=== PATIENT | female | born 1995 | race Two or more races ===

== ENCOUNTER 2020-03-31 07:18 | Emergency (ER) | payer OTHER ==
[~2020-03-31] VITALS: Ht 152.4 cm; Wt 57.2 kg
[2020-03-31] MEDS ORDERED: KETO10TA2 PO (11:20)
[2020-03-31] MEDS ORDERED: AIRBORNE EFFER1 EACH PO (11:20)
[2020-03-31] MEDS ORDERED: ZITHROMAX500 MG PO (11:20)
== END 2020-03-31 11:39 | disposition home or self-care (01) ==
LOC: ER 07:18
DX: U07.1 COVID-19 (principal); B96.0 Mycoplasma pneumoniae [M. pneumoniae] as the cause of diseases classified elsewhere

== ENCOUNTER 2020-08-25 05:09 | Emergency (ER) | payer OTHER ==
[~2020-08-25] VITALS: Ht 154.9 cm; Wt 55.8 kg
[~2020-08-25 05:09] MED LIST: AIRBORNE EFFER1 EACH PO; KETO10TA2 PO; ZITHROMAX500 MG PO
== END 2020-08-25 11:30 | disposition home or self-care (01) ==
LOC: ER 05:09
DX: O26.892 Other specified pregnancy related conditions, second trimester (principal); R42 Dizziness and giddiness; Z34.02 Encounter for supervision of normal first pregnancy, second trimester

== ENCOUNTER → 2020-09-05 09:48 | Outpatient (CLI) | payer OTHER | END | disposition home or self-care (01) | LOC: LAB 09:48 | PROVIDERS: ATTEND Obstetrics & Gynecology | DX: Z31.430 Encounter of female for testing for genetic disease carrier status for procreative management (principal); Z31.5 Encounter for procreative genetic counseling; O09.892 Supervision of other high risk pregnancies, second trimester ==

== ENCOUNTER → 2020-10-19 | Outpatient (CLI) | payer OTHER | END | disposition home or self-care (01) | LOC: PRENATAL 10:57 | PROVIDERS: ATTEND Obstetrics & Gynecology Maternal & Fetal Medicine | DX: O35.0XX1 Maternal care for (suspected) central nervous system malformation in fetus, fetus 1 (principal); O35.3XX1 Maternal care for (suspected) damage to fetus from viral disease in mother, fetus 1; O98.512 Other viral diseases complicating pregnancy, second trimester; Z36.89 Encounter for other specified antenatal screening; Z3A.23 23 weeks gestation of pregnancy ==

== ENCOUNTER 2020-11-05 07:39 | Outpatient (CLI) | payer OTHER | END 2020-11-05 07:41 | disposition home or self-care (01) | LOC: LAB 07:39 | PROVIDERS: ATTEND Obstetrics & Gynecology | DX: Z34.02 Encounter for supervision of normal first pregnancy, second trimester (principal) ==

== ENCOUNTER 2020-12-24 12:32 | Outpatient (CLI) | payer OTHER | END 2020-12-24 12:37 | disposition home or self-care (01) | LOC: LAB 12:32 | PROVIDERS: ATTEND Obstetrics & Gynecology | DX: O09.893 Supervision of other high risk pregnancies, third trimester (principal); Z11.4 Encounter for screening for human immunodeficiency virus [HIV] ==

== ENCOUNTER → 2020-12-24 | Outpatient (CLI) | payer OTHER | END | disposition home or self-care (01) | LOC: NST 11:39 | PROVIDERS: ATTEND Obstetrics & Gynecology | DX: Z34.83 Encounter for supervision of other normal pregnancy, third trimester (principal) ==

== ENCOUNTER 2021-02-06 05:00 | Inpatient (IN) | payer OTHER ==
[~2021-02-06] VITALS: Ht 152.4 cm; Wt 3.2 kg
[2021-02-06] MEDS ORDERED: PRENATABS RX T1 EACH PO (05:26)
== END 2021-02-09 16:04 | disposition home or self-care (01) | DRG 788 ==
LOC: LDR 05:00 → OB/GYN 20:07
PROVIDERS: ADMIT Obstetrics & Gynecology; ATTEND Obstetrics & Gynecology
PROC: 10D00Z1 Extraction of Products of Conception, Low, Open Approach (ICD-10-PCS; principal; 2021-02-06)
PROC: 3E0P7VZ Introduction of Hormone into Female Reproductive, Via Natural or Artificial Opening (ICD-10-PCS; 2021-02-06)
PROC: 10907ZC Drainage of Amniotic Fluid, Therapeutic from Products of Conception, Via Natural or Artificial Opening (ICD-10-PCS; 2021-02-06)
PROC: 4A1HXFZ Monitoring of Products of Conception, Cardiac Rhythm, External Approach (ICD-10-PCS; 2021-02-06)
DX: O62.1 Secondary uterine inertia (principal); O61.0 Failed medical induction of labor; Z37.0 Single live birth; Z3A.39 39 weeks gestation of pregnancy

== ENCOUNTER 2021-02-22 11:32 | Outpatient (CLI) | payer OTHER ==
[~2021-02-22 11:32] MED LIST changes: +PRENATABS RX T1 EACH PO
== END 2021-02-22 11:40 | disposition home or self-care (01) ==
LOC: LAB 11:32
PROVIDERS: ATTEND Obstetrics & Gynecology
DX: D64.89 Other specified anemias (principal)

== ENCOUNTER 2021-05-02 02:00 | Outpatient (CLI) | payer OTHER | END 2021-05-02 02:30 | disposition home or self-care (01) | LOC: PPH VACUNA 02:00 | PROVIDERS: ATTEND Emergency Medicine Pediatric Emergency Medicine | DX: Z23 Encounter for immunization (principal) ==

== ENCOUNTER 2021-05-02 08:00 | Outpatient (CLI) | payer OTHER | END 2021-05-02 08:30 | disposition home or self-care (01) | LOC: PPH VACUNA 08:00 | PROVIDERS: ATTEND Emergency Medicine Pediatric Emergency Medicine | DX: Z23 Encounter for immunization (principal) ==

== ENCOUNTER 2021-06-14 08:26 | Emergency (ER) | payer OTHER ==
[~2021-06-14] VITALS: Ht 154.9 cm; Wt 59.0 kg
[2021-06-14] MEDS ORDERED: MULTI VITAMIN1 EACH PO (13:49)
== END 2021-06-14 13:57 | disposition home or self-care (01) ==
LOC: ER 08:26
DX: K52.9 Noninfective gastroenteritis and colitis, unspecified (principal); Z20.822 Contact with and (suspected) exposure to COVID-19; Z88.6 Allergy status to analgesic agent

== ENCOUNTER → 2021-07-11 11:50 | Outpatient (CLI) | payer OTHER ==
[~2021-07-11 11:50] MED LIST changes: +MULTI VITAMIN1 EACH PO
== END | disposition home or self-care (01) ==
LOC: LAB 11:50
PROVIDERS: ATTEND Internal Medicine Geriatric Medicine
DX: D64.9 Anemia, unspecified (principal); D50.9 Iron deficiency anemia, unspecified

== ENCOUNTER 2021-07-20 07:49 | Day surgery (SDC) | payer OTHER | END 2021-07-20 12:00 | disposition home or self-care (01) | LOC: AMB-ENDOS 07:49 → CIR.AMB 15:08 → AMB-ENDOS 15:28 | PROVIDERS: ATTEND Internal Medicine Gastroenterology | DX: K90.0 Celiac disease (principal); B33.8 Other specified viral diseases; Z16.39 Resistance to other specified antimicrobial drug; K30 Functional dyspepsia; Z20.822 Contact with and (suspected) exposure to COVID-19 ==

== ENCOUNTER 2021-08-23 07:55 | Outpatient (CLI) | payer OTHER | END 2021-08-23 07:59 | disposition home or self-care (01) | LOC: LAB 07:55 | PROVIDERS: ATTEND Internal Medicine Gastroenterology | DX: R10.10 Upper abdominal pain, unspecified (principal) ==

== ENCOUNTER → 2021-09-21 07:53 | Outpatient (CLI) | payer OTHER | END | disposition home or self-care (01) | LOC: LAB 07:53 | PROVIDERS: ATTEND Obstetrics & Gynecology | DX: Z00.00 Encounter for general adult medical examination without abnormal findings (principal); I10 Essential (primary) hypertension; E03.9 Hypothyroidism, unspecified; E78.00 Pure hypercholesterolemia, unspecified; N39.0 Urinary tract infection, site not specified; Z11.4 Encounter for screening for human immunodeficiency virus [HIV]; E55.9 Vitamin D deficiency, unspecified; Z21 Asymptomatic human immunodeficiency virus [HIV] infection status; R79.9 Abnormal finding of blood chemistry, unspecified; R79.89 Other specified abnormal findings of blood chemistry ==

== ENCOUNTER 2022-05-18 08:04 | Outpatient (CLI) | payer OTHER | END 2022-05-18 08:13 | disposition home or self-care (01) | LOC: RAD 08:04 | PROVIDERS: ATTEND Physical Medicine & Rehabilitation | DX: M25.572 Pain in left ankle and joints of left foot (principal); M41.9 Scoliosis, unspecified ==

== ENCOUNTER 2022-12-31 08:10 | Outpatient (CLI) | payer OTHER | END 2022-12-31 08:11 | disposition home or self-care (01) | LOC: NUCLEAR 08:10 | PROVIDERS: ATTEND Internal Medicine | DX: R00.2 Palpitations (principal); I10 Essential (primary) hypertension ==